=== PATIENT | male | born 1940 | race Caucasian/White ===

== ENCOUNTER → 2019-04-20 | Outpatient (CLI) | payer MEDICARE, OTHER ==
--- NOTE | ~2019-04-20 | PF ---
[address] [address] PULMONARY FUNCTION REPORT Name: IAIN MAXWELL Room: [facility]#: [id number] Admission: 04/20/19 Attend Phys: Vincent Chester DO Discharge: Date of : 44 Report #: [id number] THIS REPORT FOR: //name// CC: Vincent Chester DATE OF SERVICE: 04/20/2019 The FEV1/FVC ratio is mildly depressed at 70%. The FEV1 is 99% and the FVC is 103%. There is no bronchodilator response noted. The total lung capacity is normal at 91% and the DLCO is normal as well at 102%. CONCLUSION: At this time, PFTs do not support an obstructive nor restrictive lung disease. By: [id number] Boone DO /nt
== END ==
LOC: M.PUL 09:20
DX: R05 Cough (principal)